=== PATIENT | female | born 1990 | race Caucasian/White ===

== ENCOUNTER 2020-10-30 07:38 | Emergency (ER) | payer OTHER ==
[2020-10-30 07:44] VITALS: RESP 18; TEMP 97.8
[2020-10-30] MEDS ORDERED: KETOROLAC 15 MG/ML 1 ML VIAL IVP STA (07:56)
[2020-10-30] MEDS ORDERED: SODIUM CHLORIDE 0.9% 500 ML 500 ML IV STA (07:56)
[2020-10-30 08:12] LABS: Basophils % (A) 0 %; Eosinophils # (A) 0.2 k/uL (0-0.7); Eosinophils % (A) 3 %; HCT 43.9 % (34.0-46.0); HGB 14.6 gm/dL (11.4-16.0); Lymphocytes # (A) 2.5 k/uL (1.0-4.8); Lymphocytes % (A) 32 %; MCH 29.4 pg (25.0-35.0); MCHC 33.3 g/dL (31.0-37.0); MCV 88.4 fL (80.0-100.0); Mean Platelet Volume 9.4; Monocytes # (A) 0.4 k/uL (0-1.0); Monocytes % (A) 5 %; Neutrophils # (A) 4.7 k/uL (1.3-7.7); Neutrophils % (A) 60 %; Platelet Count 211 k/uL (150-450); RBC 4.97 m/uL (3.80-5.40); RDW 12.9 % (11.5-15.5); WBC 7.9 k/uL (3.8-10.6)
--- NOTE | 2020-10-30 08:14 | ED ---
General Adult HPI - General Chief complaint: Back Pain/Injury Stated complaint: Right flank pain Time Seen by Provider: 10/30/20 07:40 Source: patient, RN notes reviewed, old records reviewed Mode of arrival: ambulatory Limitations: no limitations - History of Present Illness Initial comments: This is a 30-year-old female who presents emergency Department complains of CVA tenderness on the right. Patient states it started yesterday and has gotten pro gressively worse per patient states it does come and go and when it comes it is very severe. Patient denies any nausea vomiting patient denies any radiation of the abdomen and her lower pelvis. Patient denies any dysuria hematuria or urinary frequency. Patient denies any fever chills. Patient states movement doesn't really make it much worse but occasionally she thinks doing something with her back seems to increase the pain. Patient denies any chest pain area patient denies any injury. Patient denies any heavy lifting causing any problems. - Related Data Previous Rx's Medication Instructions Recorded Cyclobenzaprine [Flexeril] 10 mg PO TID #20 tab 10/30/20 Ketorolac [Toradol] 10 mg PO Q6HR #15 tab 10/30/20 Allergies Allergy/AdvReac Type Severity Reaction Status Date / Time No Known Allergies Allergy Verified 10/30/20 07:41 Review of Systems ROS Statement: Those systems with pertinent positive or pertinent negative responses have been documented in the HPI. ROS Other: All systems not noted in ROS Statement are negative. Past Medical History Past Medical History: No Reported History History of Any Multi-Drug Resistant Organisms: None Reported Date of last positivie culture/infection: 2014 MDRO Source:: L shoulder Past Surgical History: Section, Cholecystectomy Past Psychological History: Bipolar Smoking Status: Current every day smoker Past Alcohol Use History: None Reported Past Drug Use History: None Reported General Exam - General Exam Comments Initial Comments: GENERAL: Patient is well-developed and well-nourished. Patient is nontoxic and well- hydrated and is in mild distress. ENT: Neck is soft and supple. No significant lymphadenopathy is noted. Oropharynx is clear. Moist mucous membranes. Neck has full range of motion without eliciting any pain. EYES: The sclera were anicteric and conjunctiva were pink and moist. Extraocular movements were intact and pupils were equal round and reactive to light. Eyelids were unremarkable. PULMONARY: Unlabored respirations. Good breath sounds bilaterally. No audible rales rhonchi or wheezing was noted. CARDIOVASCULAR: There is a regular rate and rhythm without any murmurs gallops or rubs. ABDOMEN: Soft and nontender with normal bowel sounds. SKIN: Skin is clear with no lesions or rashes and otherwise unremarkable. NEUROLOGIC: Patient is alert and oriented x3. Cranial nerves II through XII are grossly intact. Motor and sensory are also intact. Normal speech, volume and content. Symmetrical smile. MUSCULOSKELETAL: Normal extremities with adequate strength and full range of motion. Palpating the CVA area did not elicit any pain No lower extremity swelling or edema. No calf tenderness. LYMPHATICS: No significant lymphadenopathy is noted PSYCHIATRIC: Normal psychiatric evaluation. Limitations: no limitations Course Vital Signs 10/30/20 07:41 Temperature 97.8 F Pulse Rate 91 Respiratory 18 Rate Blood Pressure 123/70 O2 Sat by Pulse 97 Oximetry Medical Decision Making - Medical Decision Making EKG shows normal sinus rhythm at 71 bpm WV interval 172 QRS is 82 QT interval 390 QTC is 423. Patient's EKG shows no ST segment elevation or depression. Patient's KUB shows no acute normalities. Patient's CT of the abdomen pelvis shows no acute abnormality I went back into reevaluate the patient she was much more comfortable however there was some tenderness now on palpation and I could get her to have more pain in that area with bending or twisting. - Lab Data Result diagrams: 10/30/20 08:05 10/30/20 08:05 Lab Results 10/30/20 10/30/20 10/30/20 Range/Units 08:05 08:05 08:05 WBC 7.9 (3.8-10.6) k/uL RBC 4.97 (3.80-5.40) m/uL Hgb 14.6 (11.4-16.0) gm/dL Hct 43.9 (34.0-46.0) % MCV 88.4 (80.0-100.0) fL MCH 29.4 (25.0-35.0) pg MCHC 33.3 (31.0-37.0) g/dL RDW 12.9 (11.5-15.5) % Plt Count 211 (150-450) k/uL MPV 9.4 Neutrophils % 60 % Lymphocytes % 32 % Monocytes % 5 % Eosinophils % 3 % Basophils % 0 % Neutrophils # 4.7 (1.3-7.7) k/uL Lymphocytes # 2.5 (1.0-4.8) k/uL Monocytes # 0.4 (0-1.0) k/uL Eosinophils # 0.2 (0-0.7) k/uL Basophils # 0.0 (0-0.2) k/uL Sodium 137 (137-145) mmol/L Potassium 4.4 (3.5-5.1) mmol/L Chloride 108 H (98-107) mmol/L Carbon Dioxide 19 L (22-30) mmol/L Anion Gap 10 mmol/L BUN 14 (7-17) mg/dL Creatinine 0.49 L (0.52-1.04) mg/dL Est GFR (CKD-EPI)AfAm >90 (>60 ml/min/1.73 sqM) Est GFR (CKD-EPI)NonAf >90 (>60 ml/min/1.73 sqM) Glucose 99 (74-99) mg/dL Calcium 9.1 (8.4-10.2) mg/dL Total Bilirubin 0.4 (0.2-1.3) mg/dL AST 32 (14-36) U/L ALT 47 H (4-34) U/L Alkaline Phosphatase 96 (38-126) U/L Total Protein 7.4 (6.3-8.2) g/dL Albumin 4.3 (3.5-5.0) g/dL Amylase 42 (30-110) U/L Lipase 53 (23-300) U/L Urine Color Light Yellow Urine Appearance Clear (Clear) Urine pH 6.0 (5.0-8.0) Ur Specific [place] 1.016 (1.001-1.035) Urine Protein Negative (Negative) Urine Glucose (UA) Negative (Negative) Urine Ketones Negative (Negative) Urine Blood Large H (Negative) Urine Nitrite Negative (Negative) Urine Bilirubin Negative (Negative) Urine Urobilinogen <2.0 (<2.0) mg/dL Ur Leukocyte Esterase Negative (Negative) Urine RBC 23 H (0-5) /hpf Urine WBC 1 (0-5) /hpf Ur Squamous Epith Cells 1 (0-4) /hpf Urine Mucus Rare H (None) /hpf Urine HCG, Qual (Not Detectd) 10/30/20 Range/Units 08:05 WBC (3.8-10.6) k/uL RBC (3.80-5.40) m/uL Hgb (11.4-16.0) gm/dL Hct (34.0-46.0) % MCV (80.0-100.0) fL MCH (25.0-35.0) pg MCHC (31.0-37.0) g/dL RDW (11.5-15.5) % Plt Count (150-450) k/uL MPV Neutrophils % % Lymphocytes % % Monocytes % % Eosinophils % % Basophils % % Neutrophils # (1.3-7.7) k/uL Lymphocytes # (1.0-4.8) k/uL Monocytes # (0-1.0) k/uL Eosinophils # (0-0.7) k/uL Basophils # (0-0.2) k/uL Sodium (137-145) mmol/L Potassium (3.5-5.1) mmol/L Chloride (98-107) mmol/L Carbon Dioxide (22-30) mmol/L Anion Gap mmol/L BUN (7-17) mg/dL Creatinine (0.52-1.04) mg/dL Est GFR (CKD-EPI)AfAm (>60 ml/min/1.73 sqM) Est GFR (CKD-EPI)NonAf (>60 ml/min/1.73 sqM) Glucose (74-99) mg/dL Calcium (8.4-10.2) mg/dL Total Bilirubin (0.2-1.3) mg/dL AST (14-36) U/L ALT (4-34) U/L Alkaline Phosphatase (38-126) U/L Total Protein (6.3-8.2) g/dL Albumin (3.5-5.0) g/dL Amylase (30-110) U/L Lipase (23-300) U/L Urine Color Urine Appearance (Clear) Urine pH (5.0-8.0) Ur Specific [place] (1.001-1.035) Urine Protein (Negative) Urine Glucose (UA) (Negative) Urine Ketones (Negative) Urine Blood (Negative) Urine Nitrite (Negative) Urine Bilirubin (Negative) Urine Urobilinogen (<2.0) mg/dL Ur Leukocyte Esterase (Negative) Urine RBC (0-5) /hpf Urine WBC (0-5) /hpf Ur Squamous Epith Cells (0-4) /hpf Urine Mucus (None) /hpf Urine HCG, Qual Not Detected (Not Detectd) Disposition Clinical Impression: Musculoskeletal back pain Disposition: HOME SELF-CARE Condition: Good Instructions (If sedation given, give patient instructions): Acute Low Back Pain (ED) Prescriptions: Cyclobenzaprine [Flexeril] 10 mg PO TID #20 tab Ketorolac [Toradol] 10 mg PO Q6HR #15 tab Is patient prescribed a controlled substance at d/c from ED?: No Referrals: Rex Segura MD [STAFF PHYSICIAN] - 1-2 days Time of Disposition: 09:50
[2020-10-30 08:30] LABS: Appearance,Urine Clear (Clear); Bilirubin,Urine Negative (Negative); Blood,Urine Large (Negative); Color,Urine Light Yellow; Glucose,Urine (UA) Negative (Negative); Ketones,Urine Negative (Negative); Leukocyte Esterase,Urine Negative (Negative); Mucus,Urine Rare /hpf; Nitrite,Urine Negative (Negative); Protein,Urine Negative (Negative); RBC,Urine 23 /hpf (0-5); Specific Gravity,Urine 1.016 (1.001-1.035); Squamous Epithelial Cell,Urine 1 /hpf (0-4); Urobilinogen,Urine <2.0 mg/dL (<2.0); WBC,Urine 1 /hpf (0-5)
[2020-10-30 08:37] LABS: ALT 47 U/L (4-34); AST 32 U/L (14-36); African American GFR (CKD) >90 (>60 ml/min/1.73 sqM); Albumin 4.3 g/dL (3.5-5.0); Alkaline Phosphatase 96 U/L (38-126); Amylase 42 U/L (30-110); Anion Gap 10 mmol/L; Blood Urea Nitrogen 14 mg/dL (7-17); Calcium 9.1 mg/dL (8.4-10.2); Carbon Dioxide 19 mmol/L (22-30); Chloride 108 mmol/L (98-107); Glucose 99 mg/dL (74-99); Lipase 53 U/L (23-300); Non-African American GFR(CKD) >90 (>60 ml/min/1.73 sqM); Potassium 4.4 mmol/L (3.5-5.1); Sodium 137 mmol/L (137-145); Total Bilirubin 0.4 mg/dL (0.2-1.3); Total Protein 7.4 g/dL (6.3-8.2)
[2020-10-30] MEDS ORDERED: HYDROmorphone 0.5 MG/0.5 ML SYRINGE IVP STA ×2 (08:45→09:52)
--- NOTE | 2020-10-30 08:47 | XR ---
KUB HISTORY: Right flank pain Frontal KUB submitted on 2 images Surgical clips are present right upper quadrant. Lung bases are clear. There is no evident bowel obst ruction or pneumoperitoneum. Bone mineralization is maintained. Suspect liver may be enlarged. No pat hologic calcification evident. IMPRESSION: Correlate for hepatomegaly.
[2020-10-30] MEDS ORDERED: ACET/COD 300 MG/30 MG STARTER PACK 6 TAB BTL PO STA (09:51)
--- NOTE | 2020-10-30 09:53 | CT ---
EXAMINATION TYPE: CT abdomen pelvis wo con DATE OF EXAM: 10/30/2020 COMPARISON: KUB same date HISTORY: Right sided pain with urination changes. CT DLP: 1259.4 mGycm Automated exposure control for dose reduction was used. TECHNIQUE: Helical acquisition of images from the lung bases through the pelvis. FINDINGS: Lack of intravenous contrast could compromise sensitivity. There is an umbilical hernia con taining fat, some strand-like soft tissue is present along the hernia. LUNG BASES: No significant abnormality is appreciated. AORTA: No significant abnormality is appreciataed. LIVER/GB: No significant abnormality is appreciated within the liver, patient is post cholecystectomy , liver is enlarged. PANCREAS: No significant abnormality is seen. SPLEEN: No significant abnormality is seen. ADRENALS: No significant abnormality is seen. KIDNEYS: No significant abnormality is seen. REPRODUCTIVE ORGANS: No significant abnormality is seen. Tampon is in place. URINARY BLADDER: No significant abnormality is seen. BOWEL: No significant abnormality is seen. FREE AIR: No Free Air is visible. ASCITES: None visible. PELVIC ADENOPATHY: None visualized. RETROPERITONEAL ADENOPATHY: No Retroperitoneal Adenopathy visible. OSSEOUS STRUCTURES: No significant abnormality is seen. IMPRESSION: ABDOMINAL WALL HERNIA CONTAINING FAT, THERE MAY BE SOME INFLAMMATORY CHANGES, CORRELATE FOR TENDERNES S. NONCONTRAST EXAM. POSTOP CHANGES.
[2020-10-30] MEDS ORDERED: DIAZEPAM 5 MG/ML 2 ML INJ IVP STA (10:15)
[2020-10-30 10:33] VITALS: BP 120/81; PULSE 96
== END 2020-10-30 10:15 | disposition home or self-care (01) ==
LOC: EC 07:38
DX: M54.89 Other dorsalgia (principal); R10.9 Unspecified abdominal pain; F17.200 Nicotine dependence, unspecified, uncomplicated
CPT/HCPCS: 36415; 80053; 82150; 83690; 85025; 81001; 81025; 74018; 74176; 99284; 96365; 96367; 96375; J3360; J1885; J1170

== ENCOUNTER → 2020-11-29 | Outpatient (CLI) | payer OTHER | END | disposition home or self-care (01) | LOC: LABPAT 10:45 | PROVIDERS: ATTEND Surgery | DX: Z01.810 Encounter for preprocedural cardiovascular examination (principal); Z01.812 Encounter for preprocedural laboratory examination; Z20.822 Contact with and (suspected) exposure to COVID-19 | CPT/HCPCS: 93005; U0003; C9803; U0005; 86850; 86900; 86901 ==

== ENCOUNTER 2020-12-06 09:50 | Day surgery (SDC) | payer OTHER ==
[2020-12-01 09:38] VITALS: BMI 42.9
[~2020-12-06 09:50] MED LIST: DEXAMETHASONE SOD PHOSPHATE 4 MG/ML 1 ML VIAL IV ONE; HEPARIN SODIUM,PORCINE/PF 5,000 UNIT/0.5 ML SYRINGE SQ PRN; LACTATED RINGERS 1,000 ML IV SCH; LIDOCAINE 1% (10MG/ML) FOR IV START INTRADERMA PRN; MIDAZOLAM 2 MG/2 ML VIAL IV PRN; ONDANSETRON 4 MG/2 ML VIAL IVP ONE
[2020-12-06] MEDS ORDERED: LIDOCAINE 1% INJ 10MG/ML (20 ML MDV) ONE ×2 (11:10→11:55)
[2020-12-06] MEDS ORDERED: MIDAZOLAM 2 MG/2 ML VIAL IVP ONE (11:23)
[2020-12-06] MEDS ORDERED: fentaNYL (PF) 50 MCG/ML 2 ML AMP IVP ONE (11:24)
[2020-12-06] MEDS ORDERED: HYDROmorphone (PF) 1 MG/ML ONE (11:55)
[2020-12-06] MEDS ORDERED: KETOROLAC 15 MG/ML 1 ML VIAL ONE (11:55)
[2020-12-06] MEDS ORDERED: ROPIVACAINE 5 MG/ML 30 ML VIAL ONE (11:55)
[2020-12-06] MEDS ORDERED: fentaNYL (PF) 50 MCG/ML 2 ML AMP ONE (11:55)
[2020-12-06] MEDS ORDERED: MIDAZOLAM 2 MG/2 ML VIAL ONE (11:55)
[2020-12-06] MEDS ORDERED: ROCURONIUM 10 MG/ML (5 ML VIAL) IV ONE (11:55)
[2020-12-06] MEDS ORDERED: GLYCOPYRROLATE 0.2 MG/ML 2 ML VIAL ONE (11:55)
[2020-12-06] MEDS ORDERED: NEOSTIGMINE 1 MG/ML 10 ML VIAL ONE (11:55)
[2020-12-06] MEDS ORDERED: PROPOFOL 10 MG/ML 20 ML VIAL IV ONE (11:55)
[2020-12-06] MEDS ORDERED: SUCCINYLCHOLINE CHLORIDE 100 MG/5 ML SYR IV ONE (11:55)
[2020-12-06] MEDS ORDERED: LIDOCAINE 1%-EPI 1:100,000 20 ML VIAL SQ ONE ×3 (12:20)
--- NOTE | 2020-12-06 13:08 | P.OP ---
Date of Procedure: 12/06/20 Preoperative Diagnosis: Umbilical hernia Postoperative Diagnosis: Umbilical hernia Procedure(s) Performed: Robotic incarcerated umbilical hernia repair with mesh placement Implants: VentraLight circular 11.4 cm mesh Anesthesia: MARYLINA Surgeon: Lilliana Kumar Pathology: none sent Condition: stable Disposition: same day Indications for Procedure: 30-year-old female presents with complaint of umbilical hernia. This area is causing pain. She has opted for robotic umbilical hernia repair with mesh placement. The patient was explained the risks, benefits and alternatives to the procedure. The patient did provide consent prior to attending the operating suite. Operative Findings: 2 x 2 centimeter bilobed umbilical hernia incarcerated with omentum Description of Procedure: The patient was brought to the operating suite and placed in supine position on the operating table. Gen. anesthesia with endotracheal intubation was performed as per anesthesia team. The right arm was tucked against the body in the foot board was applied. Patient was prepped and draped in regular sterile fashion. A timeout was performed to verify correct patient and correct procedure. The patient was confirmed to received preoperative IV antibiotics, bilateral SCDs and 5000 units of subcu tissues heparin for VT prophylaxis. A 5 mm incision was made along the left midaxillary line at pal[place] point and the abdomen was entered under direct visual sedation using a Visiport. Pneumoperitoneum was achieved. The umbilical hernia was clearly visualized. It was noted to be incarcerated with omentum. An additional 8 mm trocar was then placed in the left lower abdomen and a 12 mm trocar was placed in the left mid abdomen. The initial 5 mm trocar was upsized to an 8 mm trocar. The da Keven robot was undocked. The 30 robotic camera was used. A robotic prograsp and monopolar scissors were inserted through the 8 mm robotic trochars. The hernia defect was noted to measure at 2 x 2 centimeters and was incarcerated with omentum. This was reduced using gentle traction and countertraction method along with some cautery. The falciform ligament was divided using monopolar scissors, close to the anterior abdominal wall to create a landing zone for the mesh. A VentraLLittle Pim Echo system circular 11.4cm mesh was rolled and introduced into the abdominal cavity via the 12 mm trocar. The hernia defect was closed primarily with running sutures using oh be lock by taking 17 m by on the fascia on either side of the defect. A Karri-Maxine device was inserted through the middle of the hernia defect and the stay suture on the mesh was grasped to elevate the mesh against the anterior abdominal wall. The mesh was circumferentially sutured to the peritoneum of the anterior abdominal wall using 20 be lock without any folds or kinks. The robot was then undocked. Left scopic 30 camera was reinserted. All trocar sites were examined. No evidence of bleeding. The 12 mm trocar site was closed using 2 transvaginal sutures of 0 Vicryl which was placed using a Karri-Maxine device under direct visualization. The pneumoperitoneum was evacuated and all the skin incisions were closed using 4-0 Monocryl followed by Dermabond skin glue. The sponge, instrument and needle count were correct 2. Abdominal binder was applied. The patient was extubated and taken to postanesthesia care unit in stable condition.
[2020-12-06] MEDS: HYDROmorphone 0.5 MG/0.5 ML SYRINGE IVP PRN ×4 (13:20→13:45)
[2020-12-06 13:23] VITALS: TEMP 97.3
--- NOTE | 2020-12-06 14:14 | P.ANPRN ---
Procedure Note - Anesthesia - Nerve Block Performed Bilateral Rectus Abdominis Single Time Out Performed: Yes (1123) Date of Procedure: 12/06/20 Procedure Start Time: 11:24 Procedure Stop Time: 11:30 Location of Patient: PreOp Indication: Acute Post-Operative Pain, Requested by Surgeon Specifically requested for management of pain by : Lilliana Kumar Sedation Type: Sedate with meaningful contact maintained Preparation: Sterile Prep Position: Supine Catheter: None Needle Types: Pajunk Needle Gauge: 21 Ultrasound used to visualize needle placement: Yes Ultrasound used to observe medication spread: Yes Injectate: 0.5% Ropivacaine (see comment for volume) (15cc each side + 5cc PF Nacl each side) Blood Aspirated: No Pain Paresthesia on Injection Noted: No Resistance on Injection: Normal Image Stored and Saved: Yes Events: Uneventful and Well Tolerated
[2020-12-06 14:17] VITALS: RESP 18
[2020-12-06 14:45] VITALS: BP 117/76; PULSE 78
== END 2020-12-06 14:55 | disposition home or self-care (01) ==
LOC: OR 09:50
PROVIDERS: ATTEND Surgery
DX: K42.0 Umbilical hernia with obstruction, without gangrene (principal); Z90.49 Acquired absence of other specified parts of digestive tract; Z98.891 History of uterine scar from previous surgery; F17.210 Nicotine dependence, cigarettes, uncomplicated; K76.0 Fatty (change of) liver, not elsewhere classified; Z98.51 Tubal ligation status; Z79.891 Long term (current) use of opiate analgesic
CPT/HCPCS: 49653; S2900; 64488; 86850; 86900; 86901

== ENCOUNTER 2021-07-16 10:42 | Emergency (ER) | payer OTHER ==
[2021-07-16] MEDS ORDERED: KETOROLAC 30 MG/ML 1 ML VIAL IVP STA (13:11)
[2021-07-16] MEDS ORDERED: SODIUM CHLORIDE 0.9% 1,000 ML IV STA (13:11)
[2021-07-16] MEDS ORDERED: ASPIRIN 81 MG PO STA (13:11)
--- NOTE | 2021-07-16 13:18 | ED ---
General Adult HPI - General Chief complaint: Recheck/Abnormal Lab/Rx Stated complaint: Dizziness/Headache Time Seen by Provider: 07/16/21 12:53 Source: patient, RN notes reviewed, old records reviewed Mode of arrival: ambulatory Limitations: no limitations - History of Present Illness Initial comments: I evaluated the patient when she was placed in a room. Patient is a 30-year-old female with no syncope past medical history home and received the first dose of her Covid 19 vaccination per[facility] emergency department over concern for chest pain and shortness of breath. Patient states this is been ongoing for a week. She received a chest x-ray and EKG last week and outside hospital was cleared for discharge home. She has a PCP appointment tomorrow but states that the symptoms have persisted and she became more concerned. States that they come and go without any known palliative or provocative factors. She scribes the chest pain as a sharp, palpitations located across the entire front of her chest. Patient is also complaining of exertional dyspnea. She denies any cough, fevers, chills, sick contacts. Denies any nausea, vomiting, abdominal pain. States she does feel lightheaded occasionally while standing which resolves when she sits down. Denies any room spinning or vertiginous symptoms. Denies any other acute complaints at this time. She believes she is not . Patient presents over concern for her symptoms. No known history of blood clots in herself or family members. Patient denies history of anxiety but does endorse worsening stress in the last 2 weeks and wonder's if this is contributing to her symptoms. - Related Data Home Medications Medication Instructions Recorded Confirmed Ergocalciferol [Vitamin D2 (1250 1,250 mcg PO WE 07/16/21 07/16/21 Mcg = 38395 Iu)] Ibuprofen [Motrin Ib] 400 mg PO Q8H PRN 07/16/21 07/16/21 Spironolactone [Aldactone] 25 mg PO BID 07/16/21 07/16/21 predniSONE [Deltasone] 40 mg PO DAILY 07/16/21 07/16/21 Previous Rx's Medication Instructions Recorded LORazepam [Ativan] 0.5 mg PO DAILY PRN 2 Days #2 tab 07/16/21 Allergies Allergy/AdvReac Type Severity Reaction Status Date / Time No Known Allergies Allergy Verified 07/16/21 13:47 Review of Systems ROS Statement: Those systems with pertinent positive or pertinent negative responses have been documented in the HPI. Review of Systems: CONST: Denies fever EYES: Denies blurry vision ENT: Denies nasal congestion C/V: Endorses chest pain RESP: Endorses exertional dyspnea. GI: Denies abdominal pain : Denies dysuria SKIN: Denies rash. MSK: Denies joint pain. NEURO: Denies headache ROS Other: All systems not noted in ROS Statement are negative. Past Medical History Past Medical History: No Reported History History of Any Multi-Drug Resistant Organisms: None Reported Date of last positivie culture/infection: 2014 MDRO Source:: L shoulder Past Surgical History: Section, Cholecystectomy, Hernia Repair Past Psychological History: Bipolar Smoking Status: Current every day smoker Past Alcohol Use History: None Reported Past Drug Use History: None Reported General Exam - General Exam Comments Initial Comments: General: Appears in no acute distress. HEAD: Normal with no signs of head trauma. EYES: PERRLA, EOMI, conjunctiva normal, no discharge. ENT: Hearing grossly intact, normal oropharynx. RESPIRATORY: Clear breath sounds bilaterally. No wheezes, rales, or rhonchi. No increased work of breathing. Patient is not hypoxic. C/V: Regular rate and rhythm. S1 and S2 auscultated, no edema, peripheral pulses 2+ and intact throughout. Chest pain is not reproducible on palpation. ABD: Abd is soft, nontender, nondistended EXT: Normal range of motion, no obvious deformity SKIN: No rashes or lesions observed on exposed skin. NEURO: Alert and oriented x 4. Cranial nerves II-XII intact. No focal sensory or strength deficits. Able to ambulate without difficulty. NIH is 0. GCS is 15. Limitations: no limitations Course Vital Signs 07/16/21 07/16/21 07/16/21 10:59 14:02 16:12 Temperature 98.0 F 98.4 F Pulse Rate 88 65 72 Respiratory 20 17 18 Rate Blood Pressure 137/93 122/80 122/86 O2 Sat by Pulse 95 97 99 Oximetry Medical Decision Making - Medical Decision Making Based on the patient's presentation and physical exam, I'm concerned for possible cardiac etiology for her current symptoms. Cannot rule out the possibi lity of an infectious cause such as COVID-19. We will also obtain a screening d-dimer as my pretest probability for pulmonary embolism is low. She was in agreement this plan. She'll be given a 1 L fluid bolus in addition to IV Toradol and an aspirin for her current symptoms. EKG, cardiac labs, d-dimer, chest x-ray will be obtained. She'll be connected to continuous surveillance monitor which she is here in the department. Covid swab will be obtained. She was in agreement this plan. EKG shows no signs of acute ischemia. Chest x-ray shows no acute cardio primary process. Laboratory studies shows a very mildly elevated leukocytosis of 13. Remainder of the labs are unremarkable including a negative d-dimer and negative troponin. Patient is not . Covid is negative. Reevaluation come patient states she is having increased stressors in we discuss this is may be anxiety related. She is feeling improved. I'll provide her with a dose of Ativan reevaluated. On reevaluation, she was feeling improved and is safe to be discharged home. She does have follow-up with her PCP tomorrow. I will provide her with 2 doses of Ativan for home. Heart score is 0. I will provide the patient with a prescription for Ativan 0.5 mg 2 caps. I instructed the patient to follow up with their PCP in the next 3 days. . I explained that the patient should return to the emergency department if they experience any worsening symptoms. Strict return precautions were discussed with the patient. The patient expressed understanding of these instructions. I answered all questions that the patient had. The patient was discharged home in good condition with their prescriptions and follow up information. - Lab Data Result diagrams: 07/16/21 13:23 07/16/21 13:23 Lab Results 07/16/21 07/16/21 07/16/21 Range/Units 13:23 13:23 13:23 WBC 13.4 H (3.8-10.6) k/uL RBC 5.08 (3.80-5.40) m/uL Hgb 15.0 (11.4-16.0) gm/dL Hct 45.4 (34.0-46.0) % MCV 89.3 (80.0-100.0) fL MCH 29.6 (25.0-35.0) pg MCHC 33.1 (31.0-37.0) g/dL RDW 12.6 (11.5-15.5) % Plt Count 213 (150-450) k/uL MPV 9.7 Neutrophils % 61 % Lymphocytes % 32 % Monocytes % 5 % Eosinophils % 1 % Basophils % 0 % Neutrophils # 8.2 H (1.3-7.7) k/uL Lymphocytes # 4.2 (1.0-4.8) k/uL Monocytes # 0.6 (0-1.0) k/uL Eosinophils # 0.1 (0-0.7) k/uL Basophils # 0.1 (0-0.2) k/uL PT 9.5 (9.0-12.0) sec INR 0.9 (<1.2) APTT 22.3 (22.0-30.0) sec D-Dimer 0.22 (<0.60) mg/L FEU Sodium 137 (137-145) mmol/L Potassium 4.4 (3.5-5.1) mmol/L Chloride 106 (98-107) mmol/L Carbon Dioxide 21 L (22-30) mmol/L Anion Gap 10 mmol/L BUN 13 (7-17) mg/dL Creatinine 0.55 (0.52-1.04) mg/dL Est GFR (CKD-EPI)AfAm >90 (>60 ml/min/1.73 sqM) Est GFR (CKD-EPI)NonAf >90 (>60 ml/min/1.73 sqM) Glucose 90 (74-99) mg/dL Calcium 9.8 (8.4-10.2) mg/dL Magnesium 1.9 (1.6-2.3) mg/dL Total Bilirubin 0.3 (0.2-1.3) mg/dL AST 23 (14-36) U/L ALT 55 H (4-34) U/L Alkaline Phosphatase 75 (38-126) U/L Troponin I (0.000-0.034) ng/mL Total Protein 6.9 (6.3-8.2) g/dL Albumin 4.0 (3.5-5.0) g/dL HCG, Qual Not Detected Coronavirus (PCR) (Not Detectd) 07/16/21 07/16/21 Range/Units 13:23 13:23 WBC (3.8-10.6) k/uL RBC (3.80-5.40) m/uL Hgb (11.4-16.0) gm/dL Hct (34.0-46.0) % MCV (80.0-100.0) fL MCH (25.0-35.0) pg MCHC (31.0-37.0) g/dL RDW (11.5-15.5) % Plt Count (150-450) k/uL MPV Neutrophils % % Lymphocytes % % Monocytes % % Eosinophils % % Basophils % % Neutrophils # (1.3-7.7) k/uL Lymphocytes # (1.0-4.8) k/uL Monocytes # (0-1.0) k/uL Eosinophils # (0-0.7) k/uL Basophils # (0-0.2) k/uL PT (9.0-12.0) sec INR (<1.2) APTT (22.0-30.0) sec D-Dimer (<0.60) mg/L FEU Sodium (137-145) mmol/L Potassium (3.5-5.1) mmol/L Chloride (98-107) mmol/L Carbon Dioxide (22-30) mmol/L Anion Gap mmol/L BUN (7-17) mg/dL Creatinine (0.52-1.04) mg/dL Est GFR (CKD-EPI)AfAm (>60 ml/min/1.73 sqM) Est GFR (CKD-EPI)NonAf (>60 ml/min/1.73 sqM) Glucose (74-99) mg/dL Calcium (8.4-10.2) mg/dL Magnesium (1.6-2.3) mg/dL Total Bilirubin (0.2-1.3) mg/dL AST (14-36) U/L ALT (4-34) U/L Alkaline Phosphatase (38-126) U/L Troponin I <0.012 (0.000-0.034) ng/mL Total Protein (6.3-8.2) g/dL Albumin (3.5-5.0) g/dL HCG, Qual Coronavirus (PCR) Not Detected (Not Detectd) - EKG Data -: EKG Interpreted by Me EKG Comments: 12-lead Electrocardiogram Interpretation Note EKG was reviewed and interpreted by myself. 12-lead ECG performed at 1317 is int erpreted by me as revealing normal sinus rhythm at a rate of 68 beats per minute. Carmine is normal. [place] interval is 160 ms, QRS duration is 88 ms. QTC is 427 ms.. There were no ST or T wave abnormalities to suggest myocardial ischemia or injury. R wave progression across the precordium was satisfactory. By my interpretation this EKG is non-diagnostic for acute ischemia. Disposition Clinical Impression: Heart palpitations, Chest pain of unknown etiology, Anxiety Disposition: HOME SELF-CARE Condition: Good Instructions (If sedation given, give patient instructions): Chest Pain (ED), Heart Palpitations (ED), Anxiety (ED) Prescriptions: LORazepam [Ativan] 0.5 mg PO DAILY PRN 2 Days #2 tab PRN Reason: Anxiety Is patient prescribed a controlled substance at d/c from ED?: Yes If prescribed controlled substance>3 days was MAPS reviewed?: Prescribed <3 Days Referrals: Latoya Bloom MD [Primary Care Provider] - 1-2 days
--- NOTE | 2021-07-16 13:41 | XR ---
EXAMINATION TYPE: XR chest 2V DATE OF EXAM: 07/16/2021 COMPARISON: NONE HISTORY: 30 years Female. STUDY INDICATION GIVEN: Chest Pain . TECHNIQUE: Frontal lateral chest radiographs IMPRESSION: Nonspecific prominence of the interstitium may reflect atypical infection. Minimal bibasilar subsegme ntal atelectasis. No focal airspace disease, pneumothorax or pleural effusion. Cardiomediastinal silhouette is normal in appearance. Osseous structures are unremarkable.
[2021-07-16 13:52] LABS: Basophils # (A) 0.1 k/uL (0-0.2); Basophils % (A) 0 %; Eosinophils # (A) 0.1 k/uL (0-0.7); Eosinophils % (A) 1 %; HCT 45.4 % (34.0-46.0); Lymphocytes # (A) 4.2 k/uL (1.0-4.8); Lymphocytes % (A) 32 %; MCH 29.6 pg (25.0-35.0); MCHC 33.1 g/dL (31.0-37.0); MCV 89.3 fL (80.0-100.0); Mean Platelet Volume 9.7; Monocytes # (A) 0.6 k/uL (0-1.0); Monocytes % (A) 5 %; Neutrophils # (A) 8.2 k/uL (1.3-7.7); Neutrophils % (A) 61 %; Platelet Count 213 k/uL (150-450); RBC 5.08 m/uL (3.80-5.40); RDW 12.6 % (11.5-15.5); WBC 13.4 k/uL (3.8-10.6)
[2021-07-16 14:02] LABS: HCG,Qualitative Serum Not Detected
[2021-07-16 14:03] LABS: ALT 55 U/L (4-34); AST 23 U/L (14-36); African American GFR (CKD) >90 (>60 ml/min/1.73 sqM); Alkaline Phosphatase 75 U/L (38-126); Anion Gap 10 mmol/L; Blood Urea Nitrogen 13 mg/dL (7-17); Calcium 9.8 mg/dL (8.4-10.2); Carbon Dioxide 21 mmol/L (22-30); Chloride 106 mmol/L (98-107); Glucose 90 mg/dL (74-99); Magnesium 1.9 mg/dL (1.6-2.3); Non-African American GFR(CKD) >90 (>60 ml/min/1.73 sqM); Potassium 4.4 mmol/L (3.5-5.1); Sodium 137 mmol/L (137-145); Total Bilirubin 0.3 mg/dL (0.2-1.3); Total Protein 6.9 g/dL (6.3-8.2)
[2021-07-16 14:17] LABS: INR 0.9 (<1.2); Partial Thromboplastin Time 22.3 sec (22.0-30.0); Prothrombin Time 9.5 sec (9.0-12.0)
[2021-07-16] MEDS ORDERED: LORazepam 1 MG TAB PO STA (15:25)
[2021-07-16 16:13] VITALS: BP 122/86; PULSE 72; RESP 18; TEMP 98.4
== END 2021-07-16 16:11 | disposition home or self-care (01) ==
LOC: EC 10:42
DX: R07.9 Chest pain, unspecified (principal); F41.9 Anxiety disorder, unspecified; Z20.822 Contact with and (suspected) exposure to COVID-19; F17.200 Nicotine dependence, unspecified, uncomplicated; Z79.52 Long term (current) use of systemic steroids; Z79.1 Long term (current) use of non-steroidal anti-inflammatories (NSAID); Z79.899 Other long term (current) drug therapy
CPT/HCPCS: 36415; 93005; 85379; 80053; 83735; 84484; 85025; 85610; 85730; 84703; 87635; 71046; 96374; 96361; 99285; J1885

== ENCOUNTER → 2022-01-26 | Outpatient (CLI) | payer OTHER ==
--- NOTE | 2022-01-26 19:43 | US ---
EXAMINATION TYPE: US pelvic complete DATE OF EXAM: 01/26/2022 COMPARISON: NONE CLINICAL HISTORY: R10.2 PELVIC PAIN. intermittent pelvic pain, heavy menses TECHNIQUE: Transabdominal (TA) Date of LMP: 01/12/22 EXAM MEASUREMENTS: Uterus: 10.8 x 4.1 x 5.3 cm Endometrial Stripe: 0.3 cm Right Ovary: 3.0 x 2.1 x 2.3 cm Left Ovary: 2.7 x 1.6 x 1.6 cm 1. Uterus: Anteverted bulky appearance anterior body, possible fibroid = 2.1 x 1.7 x 1.6cm 2. Endometrium: appears wnl 3. Right Ovary: follicles noted 4. Left Ovary: follicles noted 5. Bilateral Adnexa: wnl 6. Posterior cul-de-sac: wnl IMPRESSION: Anterior body of the uterus is somewhat lobulated and bulky with findings suggestive of 2 .1 cm fibroid. Recommend MRI follow-up.
== END | disposition home or self-care (01) ==
LOC: RADUSWWP 16:04
PROVIDERS: ATTEND Family Medicine
DX: N85.8 Other specified noninflammatory disorders of uterus (principal)
CPT/HCPCS: 76856

== ENCOUNTER → 2022-02-19 | Outpatient (CLI) | payer OTHER ==
--- NOTE | 2022-02-20 05:26 | MR ---
EXAMINATION TYPE: MR pelvis wo/w con DATE OF EXAM: 02/19/2022 COMPARISON: None HISTORY: Leiomyoma of uterus CONTRAST: Standard multiplanar, multisequence MRI departmental protocol images were obtained without contrast a nd with 9 mL intravenous Gadavist gadolinium contrast. Urinary bladder distends smoothly. There is elongation of the uterus and uterus measures 10 cm in ken gth. The fundus measures 4.4 cm. No endometrial thickening. There are a few cervical cysts. Uterus treviño s fairly normal symmetric signal pattern and no evidence of a fibroid. The rectum appears normal. No presacral edema. Sacrum and coccyx appear intact. Sacroiliac joints appear normal. No pathologic enha ncement. No adnexal mass. There are bilateral follicular cysts on the ovaries. There is probably a scar on the lower anterior uterine segment that should be correlated wi th the history. IMPRESSION: Negative MR scan of the pelvis. No evidence of uterine fibroid. No pelvic mass.
== END | disposition home or self-care (01) ==
LOC: RADMRIMAIN 06:35
PROVIDERS: ATTEND Family Medicine
DX: N88.8 Other specified noninflammatory disorders of cervix uteri (principal)
CPT/HCPCS: 72197; A9585

== ENCOUNTER 2022-04-03 12:25 | Emergency (ER) | payer OTHER ==
[2022-04-03 12:44] VITALS: RESP 16; TEMP 97.9
[2022-04-03 14:12] LABS: Basophils % (A) 0 %; Eosinophils # (A) 0.1 k/uL (0-0.7); Eosinophils % (A) 1 %; HCT 41.5 % (34.0-46.0); HGB 13.7 gm/dL (11.4-16.0); Lymphocytes # (A) 1.6 k/uL (1.0-4.8); Lymphocytes % (A) 21 %; MCH 29.7 pg (25.0-35.0); MCHC 33.1 g/dL (31.0-37.0); MCV 89.9 fL (80.0-100.0); Mean Platelet Volume 9.8; Monocytes # (A) 0.3 k/uL (0-1.0); Monocytes % (A) 4 %; Neutrophils # (A) 5.5 k/uL (1.3-7.7); Neutrophils % (A) 72 %; Platelet Count 190 k/uL (150-450); RBC 4.62 m/uL (3.80-5.40); RDW 12.3 % (11.5-15.5); WBC 7.6 k/uL (3.8-10.6)
[2022-04-03 14:22] LABS: ALT 76 U/L (4-34); AST 32 U/L (14-36); African American GFR (CKD) >90 (>60 ml/min/1.73 sqM); Albumin 4.7 g/dL (3.5-5.0); Alkaline Phosphatase 85 U/L (38-126); Anion Gap 13 mmol/L; Blood Urea Nitrogen 11 mg/dL (7-17); Calcium 9.7 mg/dL (8.4-10.2); Carbon Dioxide 23 mmol/L (22-30); Chloride 105 mmol/L (98-107); Glucose 93 mg/dL (74-99); Non-African American GFR(CKD) >90 (>60 ml/min/1.73 sqM); Potassium 4.2 mmol/L (3.5-5.1); Sodium 141 mmol/L (137-145); Total Bilirubin 0.3 mg/dL (0.2-1.3); Total Protein 7.7 g/dL (6.3-8.2)
[2022-04-03] MEDS ORDERED: MECLIZINE 12.5 MG TAB PO STA (15:22)
[2022-04-03 17:50] LABS: Appearance,Urine Clear (Clear); Bilirubin,Urine Negative (Negative); Blood,Urine Negative (Negative); Color,Urine Light Yellow; Glucose,Urine (UA) Negative (Negative); Ketones,Urine Negative (Negative); Leukocyte Esterase,Urine Negative (Negative); Nitrite,Urine Negative (Negative); Protein,Urine Negative (Negative); Urobilinogen,Urine <2.0 mg/dL (<2.0)
[2022-04-03 17:54] LABS: Specific Gravity,Urine 1.049 (1.001-1.035)
--- NOTE | 2022-04-03 18:01 | CT ---
EXAMINATION TYPE: CT abdomen pelvis w con CT DLP: 1280.8 mGycm, Automated exposure control for dose reduction was used. DATE OF EXAM: 04/03/2022 5:21 PM COMPARISON: CT abdomen pelvis most recent from 10/30/2020 CLINICAL INDICATION:Female, 31 years old with history of abdominal pain TECHNIQUE: Axial CT of the abdomen and pelvis. Sagittal and coronal reformats were created on a [employer] workstation. Contrast used:100 mL of Isovue 300 with IV Contrast, Oral contrast used: without Oral Contrast FINDINGS: LOWER CHEST: Unremarkable ABDOMEN LIVER: Diffusely hypoattenuating parenchyma. GALLBLADDER AND BILE DUCTS: The gallbladder is surgically absent. PANCREAS: Unremarkable. SPLEEN: Unremarkable. ADRENAL GLANDS: Unremarkable. KIDNEYS AND URETERS: No evidence of hydronephrosis or renal calculus. The ureters are unremarkable. PELVIS BLADDER: Unremarkable REPRODUCTIVE: Unremarkable. ABDOMEN & PELVIS STOMACH AND BOWEL: No evidence of bowel obstruction. PERITONEUM: No evidence of pneumoperitoneum or free fluid. VASCULATURE: No evidence of aortic aneurysm. MUSCULOSKELETAL: No acute osseous abnormalities LYMPH NODES: No gross evidence for lymphadenopathy. SOFT TISSUE/ABDOMINAL WALL: Umbilical hernia changes containing fat. IMPRESSION: 1. No evidence for acute abdominal process. No hydronephrosis or renal calculi, normal appendix. 2. Hepatic steatosis. 3. Colonic diverticulosis.
--- NOTE | 2022-04-03 18:33 | ED ---
Abdominal Pain HPI - General Chief Complaint: Abdominal Pain Stated Complaint: Dizzy, abdominal pain Time Seen by Provider: 04/03/22 15:09 Source: patient Mode of arrival: ambulatory Limitations: no limitations - History of Present Illness Initial Comments: This 31-year-old female presented complaining of some abdominal pain. She states that this is superior to her umbilicus at midline. It occurred 4 days ago when she was in the pool and she lifted up her child. Nap and directly after lifting up her child. She states that the pain was severe at that time. It is been kyfi-ef-oenjnvzy since. It seems worse when she bends over or with certain movements. She has had some occasional nausea. She denies any vomiting, diarrhea, constipation, fevers, or chills. An additional complaint is that of some dizziness. She describes this as a spinning type sensation which is worse with certain body or head movements. She states that she feels like she has congestion in her right ear. She denies any ear pain. She denies any previous similar incidents. No other complaints or modifying factors. She denies any possibility of as she has had a tubal ligation. - Related Data Home Medications Medication Instructions Recorded Confirmed Ergocalciferol [Vitamin D2 (1250 1,250 mcg PO WE 07/16/21 07/16/21 Mcg = 32914 Iu)] Ibuprofen [Motrin Ib] 400 mg PO Q8H PRN 07/16/21 07/16/21 Spironolactone [Aldactone] 25 mg PO BID 07/16/21 07/16/21 predniSONE [Deltasone] 40 mg PO DAILY 07/16/21 07/16/21 Previous Rx's Medication Instructions Recorded LORazepam [Ativan] 0.5 mg PO DAILY PRN 2 Days #2 tab 07/16/21 Amoxic-Pot Clav 875-125Mg 1 each PO Q12HR #20 tablet 04/03/22 [Augmentin Xr 875-125] Meclizine [Antivert] 25 mg PO TID PRN #20 tab 04/03/22 Allergies Allergy/AdvReac Type Severity Reaction Status Date / Time No Known Allergies Allergy Verified 04/03/22 12:41 Review of Systems ROS Statement: Those systems with pertinent positive or pertinent negative responses have been documented in the HPI. ROS Other: All systems not noted in ROS Statement are negative. Past Medical History Past Medical History: No Reported History History of Any Multi-Drug Resistant Organisms: None Reported Date of last positivie culture/infection: 2014 MDRO Source:: L shoulder Past Surgical History: Section, Cholecystectomy, Hernia Repair Past Psychological History: Bipolar Smoking Status: Current every day smoker Past Alcohol Use History: None Reported Past Drug Use History: None Reported General Exam - General Exam Comments Initial Comments: GENERAL: The patient is well nourished and well hydrated. VITAL SIGNS: Heart rate, blood pressure, respiratory rate reviewed as recorded in nurse's notes. EYES: Pupils are round and reactive. Extraocular movements are intact. No conjunctival / lid redness or swelling. ENT: No external evidence of injury, swelling, or ecchymosis. Airway is patent. Throat is clear. NECK: Nontender. No swelling or evidence of injury. No subcutaneous emphysema. Trachea is midline. No thyroid mass. HEART: Regular rate and rhythm. Good peripheral pulses. LUNGS/CHEST: Breath sounds clear and equal bilaterally. No rales, rhonchi, or wheezes. No ecchymosis, subcutaneous emphysema, or tenderness. ABDOMEN: Abdomen soft with mild tenderness midline superior to the umbilicus. No overt ventral hernia is identified. There is no umbilical hernia.. No palpable masses or organomegaly. No peritoneal signs. No abdominal wall swelling or ecchymosis. EXTREMITIES: No extremity tenderness. Normal muscle tone and function. No thoracolumbar tenderness. NEUROLOGIC: Sensation is grossly intact. Cranial nerve exam reveals face is symmetrical, tongue is midline, speech is clear. SKIN: No abrasions or ecchymosis is noted. No induration or masses noted. PSYCHIATRIC: Alert and oriented. Appropriate behavior and judgment. Limitations: no limitations Course Vital Signs 04/03/22 12:41 Temperature 97.9 F Pulse Rate 84 Respiratory 16 Rate Blood Pressure 140/90 O2 Sat by Pulse 99 Oximetry Medical Decision Making - Medical Decision Making The patient was seen and examined. All diagnostics are reviewed. Laboratory is unremarkable. Urinalysis shows elevation of the specific gravity. The computed tomography scan of the abdomen and pelvis does not show any acute process. It is felt as though she likely does have a mild early ventral hernia. It is felt as though she should avoid lifting and may utilize Tylenol or Motrin in this regard and follow-up with surgeon if her symptoms get worse. The patient also appears to have vertigo. She will be placed on Antivert as well as antibiotics and is instructed to utilize Mucinex DM. Return parameters are discussed. Close follow-up recommended. - Lab Data Result diagrams: 04/03/22 14:03 04/03/22 14:03 Lab Results 04/03/22 04/03/22 04/03/22 Range/Units 14:03 14:03 17:33 WBC 7.6 (3.8-10.6) k/uL RBC 4.62 (3.80-5.40) m/uL Hgb 13.7 (11.4-16.0) gm/dL Hct 41.5 (34.0-46.0) % MCV 89.9 (80.0-100.0) fL MCH 29.7 (25.0-35.0) pg MCHC 33.1 (31.0-37.0) g/dL RDW 12.3 (11.5-15.5) % Plt Count 190 (150-450) k/uL MPV 9.8 Neutrophils % 72 % Lymphocytes % 21 % Monocytes % 4 % Eosinophils % 1 % Basophils % 0 % Neutrophils # 5.5 (1.3-7.7) k/uL Lymphocytes # 1.6 (1.0-4.8) k/uL Monocytes # 0.3 (0-1.0) k/uL Eosinophils # 0.1 (0-0.7) k/uL Basophils # 0.0 (0-0.2) k/uL Sodium 141 (137-145) mmol/L Potassium 4.2 (3.5-5.1) mmol/L Chloride 105 (98-107) mmol/L Carbon Dioxide 23 (22-30) mmol/L Anion Gap 13 mmol/L BUN 11 (7-17) mg/dL Creatinine 0.45 L (0.52-1.04) mg/dL Est GFR (CKD-EPI)AfAm >90 (>60 ml/min/1.73 sqM) Est GFR (CKD-EPI)NonAf >90 (>60 ml/min/1.73 sqM) Glucose 93 (74-99) mg/dL Calcium 9.7 (8.4-10.2) mg/dL Total Bilirubin 0.3 (0.2-1.3) mg/dL AST 32 (14-36) U/L ALT 76 H (4-34) U/L Alkaline Phosphatase 85 (38-126) U/L Total Protein 7.7 (6.3-8.2) g/dL Albumin 4.7 (3.5-5.0) g/dL Urine Color Light Yellow Urine Appearance Clear (Clear) Urine pH 6.0 (5.0-8.0) Ur Specific [place] 1.049 H (1.001-1.035) Urine Protein Negative (Negative) Urine Glucose (UA) Negative (Negative) Urine Ketones Negative (Negative) Urine Blood Negative (Negative) Urine Nitrite Negative (Negative) Urine Bilirubin Negative (Negative) Urine Urobilinogen <2.0 (<2.0) mg/dL Ur Leukocyte Esterase Negative (Negative) Disposition Clinical Impression: Acute abdominal pain, Ventral hernia, Vertigo Disposition: HOME SELF-CARE Condition: Good Instructions (If sedation given, give patient instructions): Abdominal Pain (ED), Ventral Hernia (ED), Vertigo (ED) Additional Instructions: Please also use Mucinex DM or similar for ear congestion Prescriptions: Meclizine [Antivert] 25 mg PO TID PRN #20 tab PRN Reason: Vertigo Amoxic-Pot Clav 875-125Mg [Augmentin Xr 875-125] 1 each PO Q12HR #20 tablet Is patient prescribed a controlled substance at d/c from ED?: No Referrals: Latoya Bloom MD [Primary Care Provider] - 1-2 days Time of Disposition: 18:33
[2022-04-03 18:46] VITALS: BP 110/79; PULSE 62
== END 2022-04-03 18:46 | disposition home or self-care (01) ==
LOC: EC 12:25
DX: K43.9 Ventral hernia without obstruction or gangrene (principal); R42 Dizziness and giddiness; F17.200 Nicotine dependence, unspecified, uncomplicated
CPT/HCPCS: 36415; 80053; 85025; 81003; 74177; 99284; Q9967

== ENCOUNTER 2022-06-14 08:07 | Emergency (ER) | payer OTHER ==
[2022-06-14 08:17] VITALS: BP 108/73; PULSE 78; RESP 20; TEMP 97.6
[2022-06-14] MEDS ORDERED: OXYMETAZOLINE 0.05% NASL SPRAY 1 SPRAY BOTTLE NASAL STA (08:26)
--- NOTE | 2022-06-14 08:30 | ED ---
General Adult HPI - General Chief complaint: ENT Stated complaint: Nose Bleed, dizzy Time Seen by Provider: 06/14/22 08:21 Source: patient, RN notes reviewed, old records reviewed Mode of arrival: ambulatory Limitations: no limitations - History of Present Illness Initial comments: This is a 31-year-old female who presents to the emergency department co mplaining of bleeding on the right naris. Patient states she had little blood when she blew her nose just today but today started having this morning when she blew her nose was quite a bit of clots and she said some of the blood was going down her throat and this scared her. Patient states she's been using Flonase for the last couple of months because her primary doctor is telling her to use it daily. Patient states just prior to coming back to her room the bleeding seemed to stop. Patient states she had a very mild headache and nothing she was concerned about the patient denies any other symptoms at this time. Patient denies any history of similar. Patient is on no blood thinners. - Related Data Home Medications Medication Instructions Recorded Confirmed ALPRAZolam [Xanax] 0.25 mg PO DAILY PRN 04/03/22 04/03/22 Benzoyl Peroxide [Benzoyl Peroxide 1 applic TOPICAL DAILY PRN 04/03/22 04/03/22 Cleanser] Biotin 5 mg PO DAILY 04/03/22 04/03/22 Multivitamins, Thera [Multivitamin 1 tab PO DAILY 04/03/22 04/03/22 (formulary)] Nicotine 14Mg/24Hr Patch [Habitrol 1 patch TRANSDERM DAILY 04/03/22 04/03/22 14Mg/24Hr Patch] Spironolactone 100 mg PO DAILY 04/03/22 04/03/22 methocarbamoL [Robaxin-750] 750 mg PO QID PRN 04/03/22 04/03/22 Previous Rx's Medication Instructions Recorded Amoxic-Pot Clav 875-125Mg 1 each PO Q12HR #20 tablet 04/03/22 [Augmentin Xr 875-125] Meclizine [Antivert] 25 mg PO TID PRN #20 tab 04/03/22 Allergies Allergy/AdvReac Type Severity Reaction Status Date / Time No Known Allergies Allergy Verified 06/14/22 08:18 Review of Systems ROS Statement: Those systems with pertinent positive or pertinent negative responses have been documented in the HPI. ROS Other: All systems not noted in ROS Statement are negative. Past Medical History Past Medical History: No Reported History History of Any Multi-Drug Resistant Organisms: MRSA Date of last positivie culture/infection: 2014 MDRO Source:: L shoulder Past Surgical History: Section, Cholecystectomy, Hernia Repair Past Psychological History: Bipolar Smoking Status: Vaper Past Alcohol Use History: None Reported Past Drug Use History: None Reported General Exam - General Exam Comments Initial Comments: GENERAL Patient is well-developed and well-nourished. Patient is in mild distress. EYES Patient's pupils are equal and round. Extraocular motion is intact ENT Patient has no active bleeding at this time and there is no visualization of the site of bleeding. SKIN Unremarkable NEURO The patient is alert and oriented 3 PYSCH Patient has normal interpersonal interactions. MUSCULOSKELETAL All 4 extremities have full range of motion Limitations: no limitations Course Vital Signs 06/14/22 08:13 Temperature 97.6 F Pulse Rate 78 Respiratory 20 Rate Blood Pressure 108/73 O2 Sat by Pulse 99 Oximetry Medical Decision Making - Medical Decision Making Patient was told that if she had a rebleed she has to blow all the clots out of her nose using Afrin spray twice and then use the clamp for 20 minutes and repeat this process it rebleeds again and if it does not stop after doing this twice she is to come back to the emergency department. Disposition Clinical Impression: Epistaxis Disposition: HOME SELF-CARE Condition: Good Instructions (If sedation given, give patient instructions): Nosebleed (ED) Additional Instructions: If patient has a nosebleed again she has to blow all the clots out use Afrin spray 2 and then placed a clamp on start back on her nose as possible for 20 minutes. If it rebleeds when she takes a clamp off she is to repeat this process one more time and if after that she continues to bleed she is to return to the emergency department. Is patient prescribed a controlled substance at d/c from ED?: No Referrals: Latoya Bloom MD [Primary Care Provider] - 1-2 days Time of Disposition: 08:30
== END 2022-06-14 08:56 | disposition home or self-care (01) ==
LOC: EC 08:07
DX: R04.0 Epistaxis (principal); F17.290 Nicotine dependence, other tobacco product, uncomplicated; F31.9 Bipolar disorder, unspecified; Z79.899 Other long term (current) drug therapy
CPT/HCPCS: 99283

== ENCOUNTER 2022-08-19 12:29 | Emergency (ER) | payer OTHER ==
[2022-08-19 12:36] VITALS: BP 122/84; PULSE 84; RESP 20; TEMP 98
--- NOTE | 2022-08-19 12:46 | ED ---
General Adult HPI - General Chief complaint: Extremity Injury, Upper Stated complaint: poss rt arm/neck DVT Time Seen by Provider: 08/19/22 12:38 Source: patient, RN notes reviewed Mode of arrival: ambulatory Limitations: no limitations - History of Present Illness Initial comments: 31-year-old female with no significant past medical history presents to the emergency department for right arm pain. She notes that she donates plasma every Saturday and Saturday, and is concerned she has a blood clot in her arm. She notes that it is painful at rest and describes the pain as a constant dull ache worse with movement. She complains of pain in her right antecubital region. She denies History of blood clots, recent trauma, movement may cause i njury. She denies numbness, tingling, chest pain, palpitations, shortness of breath, dyspnea. She denies recent travel, she is a non-smoker, and denies oral contraceptive use, - Related Data Home Medications Medication Instructions Recorded Confirmed ALPRAZolam [Xanax] 0.25 mg PO DAILY PRN 04/03/22 04/03/22 Benzoyl Peroxide [Benzoyl Peroxide 1 applic TOPICAL DAILY PRN 04/03/22 04/03/22 Cleanser] Biotin 5 mg PO DAILY 04/03/22 04/03/22 Multivitamins, Thera [Multivitamin 1 tab PO DAILY 04/03/22 04/03/22 (formulary)] Nicotine 14Mg/24Hr Patch [Habitrol 1 patch TRANSDERM DAILY 04/03/22 04/03/22 14Mg/24Hr Patch] Spironolactone 100 mg PO DAILY 04/03/22 04/03/22 methocarbamoL [Robaxin-750] 750 mg PO QID PRN 04/03/22 04/03/22 Previous Rx's Medication Instructions Recorded Amoxic-Pot Clav 875-125Mg 1 each PO Q12HR #20 tablet 04/03/22 [Augmentin Xr 875-125] Meclizine [Antivert] 25 mg PO TID PRN #20 tab 04/03/22 Allergies Allergy/AdvReac Type Severity Reaction Status Date / Time No Known Allergies Allergy Verified 08/19/22 12:36 Review of Systems ROS Statement: Those systems with pertinent positive or pertinent negative responses have been documented in the HPI. ROS Other: All systems not noted in ROS Statement are negative. Past Medical History Past Medical History: No Reported History History of Any Multi-Drug Resistant Organisms: MRSA Date of last positivie culture/infection: 2014 MDRO Source:: L shoulder Past Surgical History: Section, Cholecystectomy, Hernia Repair Past Psychological History: Bipolar Smoking Status: Vaper Past Alcohol Use History: None Reported Past Drug Use History: None Reported General Exam Limitations: no limitations General appearance: alert, in no apparent distress Head exam: Present: atraumatic, normocephalic, normal inspection Eye exam: Present: normal appearance, PERRL, EOMI. Absent: scleral icterus, conjunctival injection, periorbital swelling ENT exam: Present: normal exam, mucous membranes moist Neck exam: Present: normal inspection. Absent: tenderness, meningismus, lymphadenopathy Respiratory exam: Present: normal lung sounds bilaterally. Absent: respiratory distress, wheezes, rales, rhonchi, stridor Cardiovascular Exam: Present: regular rate, normal rhythm, normal heart sounds. Absent: systolic murmur, diastolic murmur, rubs, gallop, clicks GI/Abdominal exam: Present: soft, normal bowel sounds. Absent: distended, tenderness, guarding, rebound, rigid Extremities exam: Present: normal inspection, full ROM, normal capillary refill. Absent: tenderness, pedal edema, joint swelling, calf tenderness Right General: Present: normal inspection Shoulder Exam: Present: normal inspection, full ROM. Absent: tenderness, swelling Upper Arm exam: Present: normal inspection, full ROM, tenderness. Absent: swelling, erythema Elbow exam: Present: normal inspection, full ROM. Absent: tenderness, swelling, deformity, erythema Back exam: Present: normal inspection Neurological exam: Present: alert, oriented X3, CN II-XII intact Psychiatric exam: Present: normal affect, normal mood Skin exam: Present: warm, dry, intact, normal color. Absent: rash Course Vital Signs 08/19/22 12:33 Temperature 98 F Pulse Rate 84 Respiratory 20 Rate Blood Pressure 122/84 O2 Sat by Pulse 100 Oximetry Medical Decision Making - Medical Decision Making This is 31 a year old female presenting to the emergency department for right arm pain and rule out DVT. Patient was seen and evaluated, physical exam is essentially unremarkable. Patient had imaging ordered and performed during the course in the ED. I interpreted the following: US doppler of R arm negative for any evidence of DVT. I discussed the results in detail with the patient and return precautions were discussed. Patient verbalized understanding and is agreeable with plan for discharge. I discussed the case with OLGA Luther who agrees with plan for discharge Disposition Clinical Impression: Right arm pain Disposition: HOME SELF-CARE Condition: Stable Instructions (If sedation given, give patient instructions): Arm Pain (ED) Additional Instructions: Please return to emergency department if symptoms worsen or persist. Is patient prescribed a controlled substance at d/c from ED?: No Referrals: Latoya Bloom MD [Primary Care Provider] - 1-2 days Time of Disposition: 14:01
--- NOTE | 2022-08-19 14:02 | US ---
EXAMINATION TYPE: US venous doppler duplex UE RT DATE OF EXAM: 08/19/2022 COMPARISON: NONE CLINICAL HISTORY: 31-year-old female rule out DVT. Pain TECHNIQUE: Grayscale, color doppler, spectral doppler imaging performed of the deep veins of the upp er extremities. SIDE PERFORMED: Right There is normal flow, compressibility and vascular waveforms. Right Arm: Negative for DVT IMPRESSION: No sonographic evidence for DVT in the right upper extremity.
== END 2022-08-19 14:14 | disposition home or self-care (01) ==
LOC: EC 12:29
DX: M79.601 Pain in right arm (principal); F17.290 Nicotine dependence, other tobacco product, uncomplicated
CPT/HCPCS: 99283

== ENCOUNTER → 2024-10-26 | Outpatient (CLI) | payer OTHER ==
--- NOTE | 2024-10-26 11:54 | XR ---
EXAMINATION TYPE: XR Hip Bilateral Complete DATE OF EXAM: 10/26/2024 11:47 AM INDICATION: Patient age:Female; 34 years old; Reason for study: M25.551 PAIN IN RIGHT HIP; PHH. pain COMPARISON: CT abdomen and pelvis 04/03/2022, 10/30/2020, MR pelvis 02/19/2022, KUB radiograph 10/30/2020 TECHNIQUE: Both hips were examined in the frontal and lateral projections . FINDINGS: No evidence of any acute osseous pathology, joint dislocation, or soft tissue swelling. No evidence for degenerative change of the hips. Left-sided pelvic phlebolith. IMPRESSION: No acute osseous pathology. [facility], , 10/26/2024 11:51 AM
== END | disposition home or self-care (01) ==
LOC: RADXRMAIN 11:32
PROVIDERS: ATTEND Family Medicine
DX: M25.551 Pain in right hip (principal)
CPT/HCPCS: 73521

== ENCOUNTER → 2025-02-15 | Outpatient (CLI) | payer OTHER ==
[2025-02-15 15:19] LABS: Basophils # (A) 0.02 X 10*3/uL (0.00-0.10); Basophils % (A) 0.5 %; Eosinophils # (A) 0.12 X 10*3/uL (0.04-0.35); Eosinophils % (A) 3.1 %; HCT 40.2 % (37.2-46.3); HGB 13.3 g/dL (12.0-15.0); Lymphocytes # (A) 1.68 X 10*3/uL (0.90-5.00); Lymphocytes % (A) 43.2 %; MCH 29.6 pg (27.0-32.0); MCHC 33.1 g/dL (32.0-37.0); MCV 89.5 FL (80.0-97.0); Monocytes # (A) 0.36 X 10*3/uL (0.20-1.00); Monocytes % (A) 9.3 %; NRBC Per 100 WBC 0 X 10*3/uL (0.00-0.01); Neutrophils % (A) 43.6 %; Platelet Count 194 X 10*3/uL (140-440); RBC 4.49 X 10*6/uL (4.10-5.20); WBC 3.89 X 10*3/uL (4.50-10.00)
[2025-02-15 15:28] LABS: Hepatitis C IgG Antibody Reactive (Nonreactive)
[2025-02-15 15:34] LABS: ALT 66 U/L (8-44); AST 34 U/L (13-35); Albumin 4.2 g/dL (3.8-4.9); Albumin/Globulin Ratio 1.83 Ratio (1.60-3.17); Alkaline Phosphatase 97 U/L (41-126); Blood Urea Nitrogen 10.3 mg/dL (9.0-27.0); Calcium 9.1 mg/dL (8.7-10.3); Carbon Dioxide 24.7 mmol/L (21.6-31.8); Chloride 105 mmol/L (96-109); Chol/HDL Ratio 2.69 Ratio; Globulin 2.3 g/dL (1.6-3.3); Glucose 90 mg/dL (70-110); LDL Cholesterol,Calculated 80.5 mg/dL (0.0-131.0); Potassium 4.2 mmol/L (3.5-5.5); Sodium 139 mmol/L (135-145); T4, Free (Free Thyroxine) 0.97 ng/dL (0.80-1.80); Total Bilirubin 0.4 mg/dL (0.3-1.2); Total Protein 6.5 g/dL (6.2-8.2); VLDL Calculation 19.26 mg/dL (5.00-40.00)
== END | disposition home or self-care (01) ==
LOC: LABWHC1 10:06
PROVIDERS: ATTEND Family Medicine
DX: Z13.220 Encounter for screening for lipoid disorders (principal); Z01.419 Encounter for gynecological examination (general) (routine) without abnormal findings; E28.1 Androgen excess; B19.20 Unspecified viral hepatitis C without hepatic coma; E03.9 Hypothyroidism, unspecified; E55.9 Vitamin D deficiency, unspecified; D51.9 Vitamin B12 deficiency anemia, unspecified
CPT/HCPCS: 36415; 80053; 80061; 82306; 82607; 82626; 84403; 84439; 84443; 85025; 86803; 87522